=== PATIENT | female | born 1980 | race American Indian/Alaskan Native ===

== ENCOUNTER 2021-06-28 20:19 | Emergency (ER) | payer MEDICAID ==
[2021-06-28 22:20] VITALS: BP 132/85
--- NOTE | 2021-06-28 22:48 | Emergency Department Report ---
ED General Adult HPI - General Chief complaint: Urogenital-Female Stated complaint: NIPPLE PAIN Source: patient Mode of arrival: Ambulatory Limitations: No Limitations - History of Present Illness Initial comments: Patient is a 41-year-old -[place] female with no past medical history presents to the ED with complaint of acute onset persistent bilateral breast pain for the last 2 weeks. Patient states that the pain is constant and persistent and especially with palpation or whenever she wears her bra. Patient states that she has been taking [id number] medications for pain with no relief. Patient denies traumatic injury, heavy lifting, swelling, fever, chills, discharge, neck pain, chest pain or shortness of breath. MD Complaint: Bilateral breast pain -: Sudden, week(s) (14) Location: chest (bilateral breast) Radiation: non-radiation Severity scale (0 -10): 6 Quality: aching, sharp Consistency: constant Improves with: none Worsens with: none Associated Symptoms: denies other symptoms, chest pain (bilateral breast pain). denies: cough, diaphoresis, fever/chills, headaches, loss of appetite, malaise, nausea/vomiting, rash, shortness of breath, syncope, weakness Treatments Prior to Arrival: none - Related Data Previous Rx's Medication Instructions Recorded Last Taken Type Ibuprofen [Motrin] 800 mg PO Q8HR PRN #30 tablet 06/28/21 Unknown Rx Allergies Allergy/AdvReac Type Severity Reaction Status Date / Time No Known Allergies Allergy Verified 06/28/21 22:20 ED Review of Systems ROS: Stated complaint: NIPPLE PAIN Other details as noted in HPI Constitutional: denies: chills, fever Eyes: denies: eye pain, eye discharge, vision change ENT: denies: ear pain, throat pain Respiratory: other (Bilateral breast pain). denies: cough, shortness of breath, wheezing Cardiovascular: denies: chest pain, palpitations Endocrine: no symptoms reported Gastrointestinal: denies: abdominal pain, nausea, vomiting, diarrhea Genitourinary: denies: urgency, dysuria, discharge Musculoskeletal: denies: back pain, joint swelling, arthralgia Skin: denies: rash, lesions Neurological: denies: headache, weakness, paresthesias Psychiatric: denies: anxiety, depression Hematological/Lymphatic: denies: easy bleeding, easy bruising ED Past Medical Hx - Medications Home Medications: Home Medications Medication Instructions Recorded Confirmed Last Taken Type Ibuprofen [Motrin] 800 mg PO Q8HR PRN #30 tablet 06/28/21 Unknown Rx ED Physical Exam - General Limitations: No Limitations General appearance: alert, in no apparent distress - Head Head exam: Present: atraumatic, normocephalic, normal inspection - Eye Eye exam: Present: normal appearance, PERRL, EOMI Pupils: Present: normal accommodation - ENT ENT exam: Present: normal exam, normal orophraynx, mucous membranes moist, TM's normal bilaterally, normal external ear exam - Neck Neck exam: Present: normal inspection, full ROM. Absent: tenderness - Respiratory Respiratory exam: Present: normal lung sounds bilaterally, chest wall tenderness, other (Palpable bilateral breast tenderness). Absent: respiratory distress, wheezes, rales, rhonchi, accessory muscle use, decreased breath sounds, prolonged expiratory - Cardiovascular Cardiovascular Exam: Present: regular rate, normal rhythm. Absent: systolic murmur, diastolic murmur, rubs, gallop - GI/Abdominal GI/Abdominal exam: Present: soft, normal bowel sounds. Absent: tenderness, guarding, rebound, hyperactive bowel sounds, organomegaly, bruit - Extremities Exam Extremities exam: Present: normal inspection, full ROM, normal capillary refill. Absent: tenderness, pedal edema - Back Exam Back exam: Present: normal inspection, full ROM. Absent: tenderness, CVA tender ness (R), CVA tenderness (L), muscle spasm, paraspinal tenderness, vertebral tenderness - Neurological Exam Neurological exam: Present: alert, oriented X3, CN II-XII intact, normal gait, reflexes normal - Psychiatric Psychiatric exam: Present: normal affect, normal mood - Skin Skin exam: Present: warm, dry, intact, normal color. Absent: rash ED Course Vital Signs 06/28/21 06/28/21 21:01 22:19 Temperature 98.9 F 98.7 F Pulse Rate 62 76 Respiratory 18 18 Rate Blood Pressure 137/90 132/85 [Right] O2 Sat by Pulse 98 99 Oximetry ED Medical Decision Making - Medical Decision Making This is a 41-year-old -[place] female with no past medical history presents to the ED with complaint of acute onset persistent bilateral breast pain for the last 2 weeks. Patient states that the pain is constant and persistent and especially with palpation or whenever she wears her bra. Patient states that she has been taking [id number] medications for pain with no relief. In the ED, patient is alert and oriented x3 and is not in any distress. Patient was treated for pain in the ED. Patient the history of physical exam findings, the patient symptoms are likely due to fibrocystic breast changes. Patient was therefore discharged home on pain medications and advised to follow- up with [facility] physician in 7 to 10 days for reevaluation or return to the ED immediately if symptoms get worse. - Differential Diagnosis fibrocystic breast disease; mastitis; muscle strain Critical care attestation.: If time is entered above; I have spent that time in minutes in the direct care of this critically ill patient, excluding procedure time. ED Disposition Clinical Impression: Pain of both breasts Fibrocystic breast disease (FCBD) in female Qualifiers: Laterality: unspecified laterality Qualified Code(s): N60.19 - Diffuse cystic mastopathy of unspecified breast Disposition: 01 HOME / SELF CARE / HOMELESS Is pt being admited?: No Does the pt Need Aspirin: No Condition: Stable Instructions: Fibrocystic Breast Changes, Breast Self-Awareness, [id number], Fibrocystic Breast Changes, [id number] Additional Instructions: Your symptoms are likely due to fibrocystic breast disease and breast changes. Therefore take medications as needed for pain, and plenty of fluids, follow-up with your [facility] physician as previously scheduled and return to the ED immediately if symptoms get worse. Prescriptions: Ibuprofen [Motrin] 800 mg PO Q8HR PRN #30 tablet PRN Reason: Pain , Severe (7-10) Referrals: [facility] [Provider Group] - 3-5 Days Time of Disposition: 22:48 Print Language: [place]
== END 2021-06-28 22:50 | disposition left against medical advice (07) ==
LOC: ED 20:19
DX: N64.4 Mastodynia (principal); N60.19 Diffuse cystic mastopathy of unspecified breast
CPT/HCPCS: 99282

== ENCOUNTER 2021-10-06 09:57 | Emergency (ER) | payer MEDICAID | END 2021-10-06 20:25 | disposition left against medical advice (07) | LOC: ED 09:57 | DX: R11.2 Nausea with vomiting, unspecified (principal); Z53.21 Procedure and treatment not carried out due to patient leaving prior to being seen by health care provider ==